=== PATIENT | female | born 1985 | race Two or more races ===

== ENCOUNTER 2021-09-13 01:22 | Emergency (ER) | payer SELFPAY ==
[~2021-09-13] VITALS: Ht 157.5 cm; Wt 49.0 kg
[2021-09-13] MEDS ORDERED: IBUPROFEN 600MG TABLET PO NR (04:00)
[2021-09-13] MEDS ORDERED: NAPR-681 PO (05:24)
[2021-09-13] MEDS ORDERED: ALBU18HF2 IH (05:46)
[2021-09-13 06:02] VITALS: BP 109/76
== END 2021-09-13 06:03 | disposition home or self-care (01) ==
LOC: EDBD 01:22 → ER 01:22
DX: U07.1 COVID-19 (principal); J06.9 Acute upper respiratory infection, unspecified; J02.9 Acute pharyngitis, unspecified; J20.9 Acute bronchitis, unspecified
CPT/HCPCS: 71045; 81025; 99284; C9803; U0003; U0005